=== PATIENT | male | born 1945 | race Caucasian/White ===

== ENCOUNTER 2021-05-23 10:21 | Emergency (ER) | payer MEDICARE, BC ==
[~2021-05-23] VITALS: Ht 190.5 cm; Wt 96.4 kg
[~2021-05-23 10:21] MED LIST: CIPRO500 MG PO; PYRIDIUM200 M1 PO
[2021-05-23 10:34] VITALS: BP 169/79; PULSE 61; TEMP 97.8
== END 2021-05-23 11:05 | disposition home or self-care (01) ==
LOC: COL.ER 10:21
DX: T16.1XXA Foreign body in right ear, initial encounter (principal)